=== PATIENT | female | born 1995 | race Caucasian/White ===

== ENCOUNTER 2016-07-18 19:55 | Emergency (ER) | payer SELFPAY ==
[2016-07-18] MEDS ORDERED: Ondansetron INJ* 2 MG/ML VIAL IV ONE (21:40)
[2016-07-18] MEDS ORDERED: NS 0.9% 1000 ML* 2,000 ML IV ONE (21:40)
[2016-07-18 22:13] LABS: Hematocrit 39 % (35-47); Mean Corpuscular HGB Conc 34 g/dl (31-36); Mean Corpuscular Hemoglobin 28 pg (27-31); Mean Corpuscular Volume 85 fL (80-97); Mean Platelet Volume 8 um3 (7.4-10.4); Red Cell Distribution Width 13 % (10.5-15); White Blood Count 13.4 10^3/ul (3.5-10.8)
[2016-07-18 22:23] LABS: Urine Bacteria 1+ (Absent); Urine Bilirubin Negative (Negative); Urine Glucose Negative (Negative); Urine Nitrite Negative (Negative)
[2016-07-18 22:31] LABS: Albumin 4.7 g/dL (3.2-5.2); BUN/Creatinine Ratio 7.8 (8-20); Calcium 9.8 mg/dL (8.6-10.3); EGFR African American 149.2 (>60); Globulin 3.3 g/dL (2-4); Potassium 3.4 mmol/L (3.5-5.0); Total Bilirubin 0.5 mg/dL (0.2-1.0)
[2016-07-19] MEDS ORDERED: Nitrofurantoin Macrocrystals* 50 MG CAP PO ONE (01:24)
--- NOTE | 2016-07-19 01:28 | ED ---
Melinda Thurston SooYoung, scribed for Everton Boston on 07/18/16 at 2142 . Influenza-Like Illness - HPI Summary HPI Summary: A 21 y/o F presents to ED with c/o n/v onset two days. Associated sx: abd pain, hot flashes. Denies diarrhea, vaginal bleeding. Pt is , believes it's been 8 weeks. She says she's been unable to eat anything, and has even thrown up water. Denies PSHx. - History of Current Complaint Chief Complaint: EDNauseaVomitDiarrh Time Seen by Provider: 07/18/16 21:32 Hx Obtained From: Patient Onset/Duration: Lasting Days, Still Present Severity: Moderate - Allergy/Home Medications Allergies/Adverse Reactions: Allergies Allergy/AdvReac Type Severity Reaction Status Date / Time No Known Allergies Allergy Verified 07/18/16 19:58 PMH/Surg Hx/FS Hx/Imm Hx Previously Healthy: Yes GI History: Denies: Other GI Disorders - DENIES History: Denies: Other Problems/Disorders - DENIES Infectious Disease History: No Infectious Disease History: Denies: Traveled Outside the [place] in Last 30 Days - Family History Known Family History: Positive: Hypertension, Diabetes - Social History Occupation: Employed Full-time Lives: With Family Alcohol Use: None Substance Use Type: Reports: None Smoking Status (MU): Never Smoked Tobacco Review of Systems Positive: Other - pos: hot flases Positive: Abdominal Pain, Vomiting, Nausea. Negative: Diarrhea Positive: other - neg: vaginal bleeding All Other Systems Reviewed And Are Negative: Yes Physical Exam Triage Information Reviewed: Yes Vital Signs On Initial Exam: Initial Vitals Temp Pulse Resp BP Pulse Ox 97.6 F 87 18 144/75 99 07/18/16 19:58 07/18/16 19:58 07/18/16 19:58 07/18/16 19:58 07/18/16 19:58 Vital Signs Reviewed: Yes Appearance: Positive: Well-Appearing, No Pain Distress Skin: Positive: Warm, Skin Color Reflects Adequate Perfusion, Dry Head/Face: Positive: Normal Head/Face Inspection Eyes: Positive: EOMI, FANTA ENT: Positive: Normal ENT inspection Neck: Positive: Supple, Nontender Respiratory/Lung Sounds: Positive: Clear to Auscultation, Breath Sounds Present Cardiovascular: Positive: RRR, Pulses are Symmetrical in both Upper and Lower Extremities Abdomen Description: Positive: Soft, Other: - POS: MILD TENDERNESS HYPOGASTRIC Bowel Sounds: Positive: Present Musculoskeletal: Positive: Normal, Strength/ROM Intact - 4XFROM Neurological: Positive: Normal, Sensory/Motor Intact, Alert, Oriented to Person Place, Time Diagnostics - Vital Signs Vital Signs Temp Pulse Resp BP Pulse Ox 07/18/16 19:58 97.6 F 87 18 144/75 99 - Laboratory Result Diagrams: 07/18/16 22:00 07/18/16 22:00 Lab Statement: Any lab studies that have been ordered have been reviewed, and results considered in the medical decision making process. - Ultrasound No standard instances Ultrasound Interpretation: Positive (See Comments) - TRANSVAG US, IMPRESSION: Live IUP with estimated age 7 weeks and 5 days with small proximal subchorionic bleed. ABD US, IMPRESSION: Nonvisualization of the appy, and therefory appendicitis cannot be excluded. Ultrasound Interpretation Completed By: Radiologist Flu Symptom Course/Dx - Course Course Of Treatment: MDM: A 7-week, 5-day 21 y/o F presents to ED with n/v for two days, has been unable to eat. Pt denies CP, SOB. Ordered UA, transvag and abd US. Zofran given. UA results showed Specific [place] of 1.009. Ketones 2+. Leukocytes, WBC and Bacteria 1+ each. US showed no appy. Will D/C pt with Zofran and Macrobid for UTI, to f/u with [facility] in three days. Pt voiced understanding. - Diagnoses Provider Diagnoses: UTI in , Hyperemesis gravidarum Discharge - Discharge Plan Condition: Stable Disposition: HOME Prescriptions: Nitrofurantoin Monohyd Macro [Macrobid] 100 mg PO BID #20 cap Ondansetron [Zofran Odt] 4 mg PO TID #30 tab Patient Education Materials: Ondansetron (By mouth), Nitrofurantoin Combination (By mouth), Hyperemesis Gravidarum (ED), Urinary Tract Infection in (ED) Referrals: No Primary Care Phys,NOPCP [Primary Care Provider] - Ophelia Joseph MD [Medical Doctor] - Additional Instructions: Follow up with Dr. Joseph, [facility]. U/S showed you are 7-weeks and 5-days . Please return to ED if your symptoms return or worsen. The documentation as recorded by the Melinda ruvalcaba SooYoung accurately reflects the service I personally performed and the decisions made by , Everton Boston.
[2016-07-19 01:52] VITALS: BP 128/72
--- NOTE | 2016-07-19 07:47 | RAD ---
HISTORY: , vomiting, age by dates of 7 weeks and 6 days COMPARISONS: None relevant TECHNIQUE: Multiple transverse and longitudinal ultrasound images were obtained of the pelvis using grayscale, color Doppler, spectral Doppler imaging and M-Mode Doppler imaging using the endovaginal transducer. FINDINGS: UTERUS: The uterus is normal in shape, size, contour, and echotexture. There is fluid within the endocervical canal with an avascular polypoid lesion measuring approximately 0.7 cm. The cervix measures 3.3 cm in length GESTATION: There is a single live intrauterine gestation. The crown-rump length measures 0.99 cm for a gestational age of 7 weeks and 1 day. The RADHA is March 05, 2017, based on the crown-rump length. This is concordant with age by dates. cardiac motion is detected at a rate of 140 beats per minute. Gross movement is identified. anatomy cannot be assessed secondary to early dates. The amniotic fluid is qualitatively normal. There is a small subchorionic hemorrhage measuring 0.8 x 0.6 x 1.7 cm CUL-DE-SAC: There is no free fluid within the cul-de-sac. RIGHT OVARY: The right ovary measures 5.2 x 3 x 2.4 cm. Normal arterial and venous waveforms are identifiable within the ovary on spectral Doppler imaging. There is a 2 x 1.7 x 1.8 cm simple cyst of the right ovary LEFT OVARY: The left ovary measures 2.9 x 2.2 x 1.6 cm. Normal arterial and venous waveforms are identifiable within the ovary on spectral Doppler imaging. BLADDER: The bladder is not well visualized. IMPRESSION: 1. SINGLE LIVE INTRAUTERINE GESTATION AT 7 WEEKS AND 1 DAY BY CROWN-RUMP LENGTH. 2. SMALL SUBCHORIONIC HEMORRHAGE. 3. SMALL AMOUNT OF FLUID WITHIN THE ENDOCERVICAL CANAL WITH AN AVASCULAR POLYPOID LESION. THIS MAY REPRESENT HEMORRHAGIC MATERIAL WITHIN THE ENDOCERVICAL CANAL. RECOMMEND ATTENTION ON FOLLOW-UP IMAGING.
--- NOTE | 2016-07-19 07:48 | RAD ---
HISTORY: Abdominal pain, vomiting COMPARISONS: None TECHNIQUE: Multiple transverse and longitudinal ultrasound images were obtained of the right lower quadrant using grayscale and color Doppler imaging. FINDINGS: The appendix is not visualized. There is no free or loculated fluid within the right lower quadrant. IMPRESSION: THE APPENDIX IS NOT VISUALIZED. THERE IS NO FREE OR LOCULATED FLUID WITHIN THE RIGHT LOWER QUADRANT.
== END 2016-07-19 01:51 | disposition home or self-care (01) ==
LOC: ED 19:55
DX: O23.41 Unspecified infection of urinary tract in pregnancy, first trimester (principal); O21.0 Mild hyperemesis gravidarum; Z3A.08 8 weeks gestation of pregnancy
CPT/HCPCS: 36415; 76705; 76817; 80053; 81003; 81015; 83690; 84702; 85025; 86850; 86900; 86901; 87086; 96360; 96374; 99282; A9270-GY; J2405

== ENCOUNTER 2016-07-25 10:29 | Emergency (ER) | payer MEDICAID ==
[2016-07-25 11:47] VITALS: BP 112/67
--- NOTE | 2016-07-25 12:08 | UC ---
Throat Pain/Nasal Bebeto HPI - HPI Summary HPI Summary: complaint of cough and nasal congestion that started 2 days ago feels fatigued sore throat from coughing , mild ear pain coughed so hard this morning she vomited 1x denies fever and chills denies diarrhea taking zofran for nausea- able to drink fluids seen in ED 1 week ago- UTI tx and rehydration 8 weeks - History of Current Complaint Chief Complaint: UCRespiratory Stated Complaint: URI Time Seen by Provider: 07/25/16 11:58 Hx Obtained From: Patient Hx Last Menstrual Period: end may - Allergies/Home Medications Allergies/Adverse Reactions: Allergies Allergy/AdvReac Type Severity Reaction Status Date / Time No Known Allergies Allergy Verified 07/25/16 11:47 PMH/Surg Hx/FS Hx/Imm Hx Previously Healthy: No - 8 weeks , UTI - Surgical History Surgical History: None - Family History Known Family History: Positive: Hypertension, Diabetes Negative: Cardiac Disease - Social History Occupation: Employed Full-time Alcohol Use: None Substance Use Type: None Smoking Status (MU): Never Smoked Tobacco Household Exposure Type: Cigarettes Review of Systems Constitutional: Negative Skin: Negative Eyes: Negative ENT: Sore Throat, Ear Ache, Nasal Discharge Respiratory: Cough Cardiovascular: Negative Gastrointestinal: Negative Genitourinary: Negative Motor: Negative Neurovascular: Negative Musculoskeletal: Negative Neurological: Negative Psychological: Negative All Other Systems Reviewed And Are Negative: Yes Physical Exam Triage Information Reviewed: Yes Appearance: No Pain Distress, Well-Nourished Vital Signs: Initial Vital Signs Temp 97.8 F 07/25/16 11:42 Pulse 97 07/25/16 11:42 Resp 20 07/25/16 11:42 BP 112/67 07/25/16 11:42 Pulse Ox 98 07/25/16 11:42 Vital Signs Reviewed: Yes Eyes: Positive: Conjunctiva Clear ENT: Positive: Pharyngeal erythema, Nasal congestion, TMs normal. Negative: Tonsillar swelling, Tonsillar exudate Neck: Positive: No Lymphadenopathy Respiratory: Positive: Lungs clear, Normal breath sounds, No respiratory distress Cardiovascular: Positive: RRR, No Murmur, Pulses Normal Abdomen Description: Positive: Nontender, Soft Bowel Sounds: Positive: Present Musculoskeletal: Positive: No Edema Neurological: Positive: Alert Psychological Exam: Normal Skin Exam: Normal Throat Pain/Nasal Course/Dx - Course Course Of Treatment: exam completed. still being treated for uti,nausea. no indication for antibiotic. will rx for albuterol for bronchospasm. followup with [facility] next week - Differential Dx/Diagnosis Differential Diagnosis/HQI/PQRI: Otitis Media, Pharyngitis, URI Provider Diagnoses: URI Discharge - Discharge Plan Condition: Stable Disposition: HOME Prescriptions: Albuterol HFA INHALER* [Ventolin HFA Inhaler*] 2 puff INH Q4H PRN #1 mdi PRN Reason: Cough Spacer/Aerosol-Holding Chamber [Aerochamber Mv] 1 mis XX Q4HR #1 mis Patient Education Materials: Upper Respiratory Infection (ED) Forms: *Work Release Referrals: No Primary Care Phys,NOPCP [Primary Care Provider] - Additional Instructions: Use your albuterol inhaler every 4-6 hours when needed for wheezing, shortness of breath or uncontrolled coughing. Increase fluids and rest Take acetaminophen for fever or pain Please review your discharge instructions. If your symptoms do not improve please call your primary care provider or return to urgent care.
[2016-07-25] MEDS ORDERED: PPD test dose* 5 TU/0.1 ML TEST (*USE PPD ORDER SET*) ONE (14:22)
== END 2016-07-25 12:48 | disposition home or self-care (01) ==
LOC: UCEAST 10:29
DX: O26.891 Other specified pregnancy related conditions, first trimester (principal); Z3A.08 8 weeks gestation of pregnancy; J06.9 Acute upper respiratory infection, unspecified; Z87.440 Personal history of urinary (tract) infections; Z77.22 Contact with and (suspected) exposure to environmental tobacco smoke (acute) (chronic)
CPT/HCPCS: 99212; G0463

== ENCOUNTER 2017-03-11 08:08 | Inpatient (IN) | payer OTHER ==
[2017-03-11] MEDS ORDERED: Dinoprostone* 10 MG VAG.SUPP VAGINAL ONE ×2 (08:51→21:18)
[2017-03-11] MEDS ORDERED: Nalbuphine* 20 MG/ML 1 ML VIAL IV ONE (21:58)
[2017-03-11] MEDS ORDERED: Promethazine INJ(RESTRICTED)* 25 MG/ML 1 ML VIAL IM ONE (21:59)
[2017-03-12] MEDS ORDERED: Oxytocin in LR* 20 UNITS/1,000 ML BAG IVPB SCH (11:00)
[2017-03-12 11:27] LABS: Hematocrit 36 % (35-47); Mean Corpuscular HGB Conc 33 g/dl (31-36); Mean Corpuscular Hemoglobin 28 pg (27-31); Mean Corpuscular Volume 85 fL (80-97); Mean Platelet Volume 8 um3 (7.4-10.4); Red Blood Count 4.27 10^6/ul (4.0-5.4); Red Cell Distribution Width 15 % (10.5-15); White Blood Count 13.7 10^3/ul (3.5-10.8)
[2017-03-12] MEDS ORDERED: Promethazine INJ(RESTRICTED)* 25 MG/ML 1 ML VIAL IV ONE (20:59)
[2017-03-12] MEDS ORDERED: Nalbuphine* 20 MG/ML 1 ML VIAL IV ONE (21:01)
[2017-03-13] MEDS ORDERED: OBEPIDURAL* 0 ML ONE (00:47)
[2017-03-13] MEDS ORDERED: fentaNYL* 50 MCG/ML 2 ML VIAL (100 MCG VIAL) ONE (03:12)
[2017-03-13] MEDS ORDERED: Phenylephrine IV* 40 MCG/ML 10 ML SYRINGE IV PUSH PRN ×2 (03:58)
[2017-03-13] MEDS ORDERED: Famotidine TAB* 20 MG PO PRN (03:58)
[2017-03-13] MEDS ORDERED: fentaNYL* 50 MCG/ML 2 ML VIAL (100 MCG VIAL) IV SLOW PU ONE ×2 (04:00→08:16)
[2017-03-13] MEDS ORDERED: Glycerin ADULT SUPP PR PRN (08:44)
[2017-03-13] MEDS ORDERED: Acetaminophen TAB* 325 MG PO PRN (08:44)
[2017-03-13] MEDS ORDERED: oxyCODONE/Acetamin 5/325 MG* TAB PO PRN (08:44)
[2017-03-13] MEDS ORDERED: Oxytocin in LR* 20 UNITS/1,000 ML BAG IVPB SCH (09:00)
[2017-03-13] MEDS: Ibuprofen TAB* 600 MG PO PRN ×3 (10:12→22:06)
[2017-03-13] MEDS: Witch Hazel PAD* JAR TOPICAL PRN (10:13)
[2017-03-13] MEDS: Dibucaine 1% 28.35 GM TUBE PR PRN (10:13)
[2017-03-13] MEDS: Docusate CAP* 100 MG PO SCH ×3 (11:12→20:07)
[2017-03-13] MEDS ORDERED: Simethicone TAB* 80 MG TAB.CHEW PO SCH (12:30)
[2017-03-14] MEDS: Ibuprofen TAB* 600 MG PO PRN ×3 (04:56→20:21)
[2017-03-14 08:17] LABS: Hematocrit 28 % (35-47); Hemoglobin 9.5 g/dl (12.0-16.0); Mean Corpuscular HGB Conc 34 g/dl (31-36); Mean Corpuscular Hemoglobin 29 pg (27-31); Mean Corpuscular Volume 85 fL (80-97); Mean Platelet Volume 8 um3 (7.4-10.4); Red Blood Count 3.29 10^6/ul (4.0-5.4); Red Cell Distribution Width 15 % (10.5-15); White Blood Count 15.9 10^3/ul (3.5-10.8)
[2017-03-14] MEDS: Ferrous Gluconate TAB* 324 MG TAB PO SCH ×2 (08:58→20:21)
[2017-03-14] MEDS: Docusate CAP* 100 MG PO SCH ×3 (08:58→20:21)
[2017-03-14] MEDS: Dibucaine 1% 28.35 GM TUBE PR PRN (20:21)
[2017-03-14] MEDS: Witch Hazel PAD* JAR TOPICAL PRN (20:21)
[2017-03-15] MEDS: Ibuprofen TAB* 600 MG PO PRN ×3 (05:05→17:06)
[2017-03-15] MEDS: Docusate CAP* 100 MG PO SCH ×2 (07:35→13:48)
[2017-03-15] MEDS: Ferrous Gluconate TAB* 324 MG TAB PO SCH (07:35)
[2017-03-15 07:36] VITALS: BP 144/70
== END 2017-03-15 17:00 | disposition home or self-care (01) | DRG 560 ==
LOC: MCHOBOUT 08:08 → MCHOB 08:54
PROVIDERS: ADMIT Midwife; ATTEND Midwife
PROC: 3E0P7GC Introduction of Other Therapeutic Substance into Female Reproductive, Via Natural or Artificial Opening (ICD-10-PCS; principal; 2017-03-13)
PROC: 10E0XZZ Delivery of Products of Conception, External Approach (ICD-10-PCS; 2017-03-13)
PROC: 4A1HXCZ Monitoring of Products of Conception, Cardiac Rate, External Approach (ICD-10-PCS; 2017-03-13)
PROC: 0KQM0ZZ Repair Perineum Muscle, Open Approach (ICD-10-PCS; 2017-03-13)
DX: O48.0 Post-term pregnancy (principal); E66.9 Obesity, unspecified; O87.2 Hemorrhoids in the puerperium; Z3A.41 41 weeks gestation of pregnancy; Z37.0 Single live birth; O69.81X0 Labor and delivery complicated by cord around neck, without compression, not applicable or unspecified; O90.81 Anemia of the puerperium; O70.1 Second degree perineal laceration during delivery; O77.0 Labor and delivery complicated by meconium in amniotic fluid; O99.214 Obesity complicating childbirth; Z68.33 Body mass index [BMI] 33.0-33.9, adult
CPT/HCPCS: 36415; 59200; 85025; 86850; 86900; 86901; A9270-GY; J2300; J2550; J3010

== ENCOUNTER 2017-08-22 12:47 | Emergency (ER) | payer OTHER ==
[2017-08-22 12:58] VITALS: BP 133/82
[2017-08-22] MEDS ORDERED: Ibuprofen TAB* 600 MG PO ONE (13:29)
--- NOTE | 2017-08-22 13:29 | UC ---
Respiratory Complaint HPI - HPI Summary HPI Summary: 22 year old female with no significant pmhx here with sore throat since yesterday. Reports chills but no fever. Also bilateral earache with no discharge. Dry cough. No odynophagia or dysphagia. - History of Current Complaint Chief Complaint: UCRespiratory Stated Complaint: SORE THROAT Time Seen by Provider: 08/22/17 13:05 Hx Last Menstrual Period: 08/14/17 Onset/Duration: Gradual Onset Timing: Constant Severity Initially: Mild Severity Currently: Mild Pain Intensity: 3 Character: Cough: Nonproductive Associated Signs And Symptoms: Positive: Chills. Negative: Dyspnea, Fever, Pleuritic Chest Pain, Wheezing, Hemoptysis, Dizziness, Calf Pain, Calf Swelling , Edema, Nasal Congestion, Hoarseness, Sinus Discomfort - Allergies/Home Medications Allergies/Adverse Reactions: Allergies Allergy/AdvReac Type Severity Reaction Status Date / Time No Known Allergies Allergy Verified 08/22/17 12:58 PMH/Surg Hx/FS Hx/Imm Hx Previously Healthy: Yes - Surgical History Surgical History: None - Family History Known Family History: Positive: Hypertension, Diabetes Negative: Cardiac Disease - Social History Alcohol Use: None Substance Use Type: None Smoking Status (MU): Never Smoked Tobacco Household Exposure Type: Cigarettes - Immunization History Most Recent Influenza Vaccination: Unknown Most Recent Pneumonia Vaccination: Unknown Review of Systems Constitutional: Negative Skin: Negative Eyes: Negative ENT: Negative, Sore Throat, Ear Ache Respiratory: Cough Cardiovascular: Negative Gastrointestinal: Negative Genitourinary: Negative Motor: Negative Neurovascular: Negative Musculoskeletal: Negative Neurological: Negative Psychological: Negative All Other Systems Reviewed And Are Negative: Yes Physical Exam Triage Information Reviewed: Yes Appearance: Well-Appearing, No Pain Distress Vital Signs: Initial Vital Signs Temp 36.5 C 08/22/17 12:54 Pulse 90 08/22/17 12:54 Resp 16 08/22/17 12:54 BP 133/82 08/22/17 12:54 Pulse Ox 98 08/22/17 12:54 Vital Signs Reviewed: Yes Eye Exam: Normal ENT: Positive: Pharyngeal erythema, TMs normal, Tonsillar exudate, Uvula midline. Negative: Tonsillar swelling, Trismus, Muffled voice, Hoarse voice, Dental tenderness, Sinus tenderness Neck exam: Normal Respiratory Exam: Normal Cardiovascular Exam: Normal Abdominal Exam: Normal Musculoskeletal Exam: Normal Skin Exam: Normal UC Diagnostic Evaluation - Laboratory O2 Sat by Pulse Oximetry: 98 Respiratory Course/Dx - Differential Dx/Diagnosis Differential Diagnosis/HQI/PQRI: Bronchitis, Lower Resp Infection, Sinusitis Provider Diagnoses: pharyngitis. rapid strep negative. Will instruct patient to take NSAIDs and magic mouth wash Discharge - Discharge Plan Condition: Good Disposition: HOME Prescriptions: Ibuprofen TAB* [Motrin TAB* 600 MG] 600 mg PO Q8H PRN #30 tab PRN Reason: Pain Magic Mouth Was-TOMAS/MAAL/LIDO* 5 ml SWISH SWAL QID PRN #1 bottle PRN Reason: Pain Penicillin VK 500 MG TAB(NF) [Penicillin VK 500 mg Tab] 500 mg PO QID #10 tab Patient Education Materials: Pharyngitis (ED), Strep Throat (ED) Forms: *Work Release Referrals: No Primary Care Phys,NOPCP [Primary Care Provider] -
== END 2017-08-22 14:15 | disposition home or self-care (01) ==
LOC: UCEAST 12:47
DX: J02.9 Acute pharyngitis, unspecified (principal); R68.83 Chills (without fever); H92.03 Otalgia, bilateral; R05 Cough
CPT/HCPCS: 87651; 99212; A9270-GY; G0463

== ENCOUNTER 2017-09-29 10:38 | Emergency (ER) | payer OTHER ==
[2017-09-29 10:57] VITALS: BP 110/66
--- NOTE | 2017-09-29 12:10 | UC ---
Respiratory Complaint HPI - HPI Summary HPI Summary: Patient has had increased cough, sinus pressure, and sob on exertion denies fever - History of Current Complaint Chief Complaint: UCRespiratory Stated Complaint: URI Time Seen by Provider: 09/29/17 10:54 Hx Obtained From: Patient Hx Last Menstrual Period: 09/21/17 ?: No Onset/Duration: Sudden Onset, Lasting Days Severity Initially: Moderate Severity Currently: Moderate Pain Intensity: 7 Character: Cough: Nonproductive Aggravating Factors: Deep Breaths, Recumbent Position Alleviating Factors: Nothing Associated Signs And Symptoms: Positive: Wheezing, URI, Nasal Congestion, Sinus Discomfort - Allergies/Home Medications Allergies/Adverse Reactions: Allergies Allergy/AdvReac Type Severity Reaction Status Date / Time No Known Allergies Allergy Verified 09/29/17 10:57 PMH/Surg Hx/FS Hx/Imm Hx Previously Healthy: Yes - Surgical History Surgical History: None - Family History Known Family History: Positive: Hypertension, Diabetes Negative: Cardiac Disease - Social History Alcohol Use: None Substance Use Type: None Smoking Status (MU): Never Smoked Tobacco Household Exposure Type: Cigarettes - Immunization History Most Recent Influenza Vaccination: Unknown Most Recent Pneumonia Vaccination: Unknown Review of Systems Constitutional: Chills, Fatigue Skin: Negative Eyes: Negative ENT: Sore Throat, Ear Ache, Nasal Discharge, Sinus Congestion, Sinus Pain/ Tenderness Respiratory: Shortness Of Breath, Cough Cardiovascular: Negative Gastrointestinal: Negative Genitourinary: Negative Motor: Negative Neurovascular: Negative Musculoskeletal: Negative Neurological: Headache Psychological: Negative Is Patient Immunocompromised?: No All Other Systems Reviewed And Are Negative: Yes Physical Exam Triage Information Reviewed: Yes Appearance: Well-Nourished, Ill-Appearing, Pain Distress Vital Signs: Initial Vital Signs Temp 97.5 F 09/29/17 10:53 Pulse 72 09/29/17 10:53 Resp 18 09/29/17 10:53 BP 110/66 09/29/17 10:53 Pulse Ox 98 09/29/17 10:53 Vital Signs Reviewed: Yes Eye Exam: Normal ENT: Positive: Nasal congestion, Nasal drainage, TM bulging, Sinus tenderness Dental Exam: Normal Neck exam: Normal Neck: Positive: Supple, Nontender, No Lymphadenopathy Respiratory Exam: Normal Respiratory: Positive: Chest non-tender, Lungs clear, Normal breath sounds Cardiovascular Exam: Normal Cardiovascular: Positive: RRR, No Murmur, Pulses Normal Abdominal Exam: Normal Abdomen Description: Positive: Nontender, No Organomegaly, Soft Bowel Sounds: Positive: Present Musculoskeletal Exam: Normal Musculoskeletal: Positive: Strength Intact, ROM Intact, No Edema Neurological Exam: Normal Neurological: Positive: Alert, Muscle Tone Normal Psychological Exam: Normal Skin Exam: Normal UC Diagnostic Evaluation - Laboratory O2 Sat by Pulse Oximetry: 98 Respiratory Course/Dx - Course Course Of Treatment: hx obtained, exam performed ,meds reviewed, treated for bronchitis and sinusitis - Differential Dx/Diagnosis Differential Diagnosis/HQI/PQRI: Asthma, Bronchitis, Sinusitis Provider Diagnoses: sinusitis. bronchitis Discharge - Sign-Out/Discharge Documenting (check all that apply): Discharge - Discharge Plan Condition: Stable Disposition: HOME Prescriptions: Azithromyxin ABDIRAHMAN (NF) [Z-Abdirahman (Zithromax) 250 mg tabs #6] 2 tab PO .TODAY, THEN 1 DAILY #6 tab predniSONE TAB* [Deltasone TAB*] 40 mg PO DAILY #14 tab Patient Education Materials: Sinusitis (ED) Referrals: No Primary Care Phys,NOPCP [Primary Care Provider] - Additional Instructions: 1. take the medication as prescribed. 2. Get plenty of rest, increase fluid intake 3. Follow up as needed. - Billing Disposition and Condition Condition: STABLE Disposition: HOME
== END 2017-09-29 12:18 | disposition home or self-care (01) ==
LOC: UCEAST 10:38
DX: J32.9 Chronic sinusitis, unspecified (principal); J40 Bronchitis, not specified as acute or chronic
CPT/HCPCS: 99212; G0463

== ENCOUNTER 2017-12-20 12:51 | Emergency (ER) | payer SELFPAY ==
[2017-12-20 13:16] VITALS: BP 116/70
--- NOTE | 2017-12-20 14:02 | UC ---
Arin Thurston Gabriel, scribed for Tariq Lambert MD on 12/20/17 at 1332 . Throat Pain/Nasal Bebeto HPI - HPI Summary HPI Summary: This patient is a 22 year old F presenting to [facility] c/o sore throat and right ear pain that began last night. The patient rates the pain 8/10 in severity. Patient reports myalgia, rhinorrhea, cough, and sneezing. - History of Current Complaint Chief Complaint: UCGeneralIllness Stated Complaint: SORE THROAT EAR PAIN RESP ISSUE Time Seen by Provider: 12/20/17 13:24 Hx Obtained From: Patient Hx Last Menstrual Period: 12/06/17 Onset/Duration: Still Present Severity: Severe Pain Intensity: 8 Pain Scale Used: 0-10 Numeric Associated Signs & Symptoms: Positive: Fever, Other - ear pain - Allergies/Home Medications Allergies/Adverse Reactions: Allergies Allergy/AdvReac Type Severity Reaction Status Date / Time No Known Allergies Allergy Verified 12/20/17 13:16 PMH/Surg Hx/FS Hx/Imm Hx Previously Healthy: Yes Other History Of: Negative For: Hepatitis C - Surgical History Surgical History: None - Family History Known Family History: Positive: Hypertension, Diabetes Negative: Cardiac Disease - Social History Alcohol Use: Rare Substance Use Type: None Smoking Status (MU): Never Smoked Tobacco Household Exposure Type: Cigarettes - Immunization History Most Recent Influenza Vaccination: Unknown Most Recent Pneumonia Vaccination: Unknown Review of Systems Constitutional: Fever ENT: Sore Throat, Ear Ache, Nasal Discharge, Other - sneezing Respiratory: Cough Musculoskeletal: Myalgia All Other Systems Reviewed And Are Negative: Yes Physical Exam - Summary Physical Exam Summary: General: mildly ill-appearing, no pain distress Skin: warm, color reflects adequate perfusion, dry Head: normal Eyes: EOMI, FANTA ENT: posterior pharynx is erythematous with exudates, tonsils two plus Neck: supple, nontender Respiratory: CTA, breath sounds present Cardiovascular: RRR Abdomen: soft, nontender Bowel: present Musculoskeletal: normal, strength/ROM intact Neurological: sensory/motor intact, A&O x3 Psychological: affect/mood appropriate Triage Information Reviewed: Yes Vital Signs: Initial Vital Signs Temp 100.6 F 12/20/17 13:13 Pulse 88 12/20/17 13:13 Resp 20 12/20/17 13:13 BP 116/70 12/20/17 13:13 Pulse Ox 100 12/20/17 13:13 Vital Signs Reviewed: Yes Throat Pain/Nasal Course/Dx - Differential Dx/Diagnosis Provider Diagnoses: STREP THROAT Discharge - Sign-Out/Discharge Documenting (check all that apply): Discharge/Admit/Transfer - Discharge Plan Condition: Stable Disposition: HOME Prescriptions: Penicillin VK 500 MG TAB(NF) [Penicillin VK 500 mg Tab] 500 mg PO TID #30 tab Patient Education Materials: Strep Throat (ED) Forms: *Work Release Referrals: [facility] [Outside] Additional Instructions: FOLLOW UP WITH YOUR DOCTOR. GET RECHECKED FOR ANY WORSENING OF YOUR CONDITION OR QUESTIONS OR CONCERNS. - Billing Disposition and Condition Condition: STABLE Disposition: Home The documentation as recorded by the Arin ruvalcaba Gabriel accurately reflects the service I personally performed and the decisions made by me, Tariq Lambert MD.
== END 2017-12-20 13:50 | disposition home or self-care (01) ==
LOC: UCEAST 12:51
DX: J02.0 Streptococcal pharyngitis (principal)
CPT/HCPCS: 87651; 99212; G0463

== ENCOUNTER 2018-02-07 21:23 | Emergency (ER) | payer SELFPAY ==
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
[2018-02-08 01:28] VITALS: BP 136/66
== END 2018-02-08 01:26 | disposition home or self-care (01) ==
LOC: ED 21:23
DX: S09.90XA Unspecified injury of head, initial encounter (principal); V48.1XXA Car passenger injured in noncollision transport accident in nontraffic accident, initial encounter; Y93.9 Activity, unspecified; Y92.9 Unspecified place or not applicable; M54.9 Dorsalgia, unspecified; M54.2 Cervicalgia; R11.0 Nausea
CPT/HCPCS: 72125; 72128; 72131; 99282

== ENCOUNTER 2019-02-23 19:40 | Emergency (ER) | payer BC ==
[2019-02-23 19:54] VITALS: BP 147/74
[2019-02-23] MEDS ORDERED: Ketorolac *IM* INJ* 60 MG/2 ML VIAL IM ONE (20:04)
--- NOTE | 2019-02-23 20:04 | UC ---
Back Pain HPI - HPI Summary HPI Summary: 23 yo woman with history of intermittent back pain since an epidural 2 years ago , who had acute onset of pain when she turned to flush the toilet today and sneezed at the same time. Acute onset of pain and worsening spasm as the day has progressed. Her last dose of ibuprofen was this morning, and she as rested all day, as well as applying ice to the area without relief. No urinary or fecal incontinence. Some radiation of pain to the right anterolateral thigh, no leg weakness. - History of Current Complaint Chief Complaint: UCBackPain Stated Complaint: BACK PAIN Time Seen by Provider: 02/23/19 19:47 Hx Obtained From: Patient Hx Last Menstrual Period: 02/02/2019 Onset/Duration: Sudden Onset, Lasting Hours Timing: Constant Severity Initially: Severe Severity Currently: Severe Pain Intensity: 10 Back Pain: Is Diffuse - lumbar spine. Character: Throbbing, Spasmodic Aggravating Factor(s): Movement, Lifting, Bending, Walking, Cough Alleviating Factor(s): Rest, Position - best with lying, fair with standing. Associated Signs And Symptoms: Negative: Weakness, Numbness, Bladder Incontinence, Bowel Incontinence - Risk Factors AAA Risk Factors: Negative TAD Risk Factors: Negative Cauda Equina Risk Factors: Negative - Allergies/Home Medications Allergies/Adverse Reactions: Allergies Allergy/AdvReac Type Severity Reaction Status Date / Time No Known Allergies Allergy Verified 02/07/18 21:56 Home Medications: Home Medications Ibuprofen TAB* [Motrin TAB* 800 MG] 02/23/19 [History] PMH/Surg Hx/FS Hx/Imm Hx Previously Healthy: Yes Other History Of: Negative For: Hepatitis C - Surgical History Surgical History: None - Family History Known Family History: Positive: Hypertension, Diabetes Negative: Cardiac Disease - Social History 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: Employed 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-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 [employer] Alcohol Use: None Substance Use Type: None Smoking Status (MU): Never Smoked Tobacco Household Exposure Type: Cigarettes - Immunization History Most Recent Influenza Vaccination: Unknown Most Recent Pneumonia Vaccination: Unknown Review of Systems All Other Systems Reviewed And Are Negative: Yes Constitutional: Positive: Fatigue Motor: Positive: Decreased ROM Is Patient Immunocompromised?: No Physical Exam Triage Information Reviewed: Yes Appearance: Well-Appearing, Pain Distress - moderate to severe Vital Signs: Initial Vital Signs Temp 99.2 F 02/23/19 19:47 Pulse 79 09/02/19 19:47 Resp 16 02/23/19 19:47 BP 147/74 02/23/19 19:47 Pulse Ox 99 02/23/19 19:47 ENT: Positive: Normal ENT inspection Respiratory: Positive: Lungs clear, Normal breath sounds, No respiratory distress Cardiovascular: Positive: RRR, No Murmur Musculoskeletal Exam: Other - standing forward flexed at the lumbar spine and reports too much pain to extend to neutral. She is unable to step up to the exam table. Musculoskeletal: Positive: Strength Intact, ROM Limited @ - lumbar spine Re-Evaluation - Re-Evaluation First Eval Change: Improved - pain decreased to 6/10, decreased spasm in paraspinal muscles , improved movement Back Pain Course/Dx - Course Course Of Treatment: We reviewed acute back spasm. Suggested PT, off work x 2 days, use of heat, brief use of lorazepam as a muscle relaxant with continued use of libuprofen as needed for pain. I-stop reviewed--had alprazolam given for dental procedure this past month. - Differential Dx/Diagnosis Differential Diagnosis/HQI/PQRI: Herniated Disc, Strain, Sprain Provider Diagnosis: Low back pain Discharge ED - Sign-Out/Discharge Documenting (check all that apply): Patient Departure All imaging exams completed and their final reports reviewed: No Studies - Discharge Plan Condition: Stable Disposition: HOME Prescriptions: LORazepam [Ativan 1 MG TAB] 1 mg PO TID PRN #10 tablet MDD 3 PRN Reason: Spasms - Back Naproxen [Naproxen 500 mg tab] 500 mg PO BID PRN #30 tablet PRN Reason: Pain - Moderate Patient Education Materials: Acute Low Back Pain (ED) Referrals: No Primary Care Phys,NOPCP [Primary Care Provider] - Laurel Johnson MD [Medical Doctor] - Additional Instructions: Use naproxen rather than ibuprofen for relief of pain, taking one tablet twice daily with food. Stop if it causes stomach upset or pain. You have a referral for physical therapy; please follow up with Dr Johnson if you are having persistent pain not relieved by the medicatins given. Use lorazepam with caution for relief of spasm - Billing Disposition and Condition Condition: STABLE Disposition: Home
[2019-02-23] MEDS ORDERED: LORazepam TAB(*) 1 MG PO ONE ×2 (20:05→21:02)
== END 2019-02-23 21:15 | disposition home or self-care (01) ==
LOC: UCEAST 19:40
DX: M54.9 Dorsalgia, unspecified (principal)
CPT/HCPCS: 96372; 99212; A9270-GY; G0463; J1885

== ENCOUNTER 2019-06-24 12:10 | Emergency (ER) | payer BC ==
[2019-06-24 13:09] VITALS: BP 119/71
--- NOTE | 2019-06-24 13:11 | UC ---
Throat Pain/Nasal Bebeto HPI - HPI Summary HPI Summary: 24 yo with 3 day history of sore throat and cough, decreased appetite. No nausea or vomiting, no fever. - History of Current Complaint Chief Complaint: UCGeneralIllness Stated Complaint: SORE THROAT HEAD CONGESTION Time Seen by Provider: 06/24/19 13:04 Hx Obtained From: Patient Hx Last Menstrual Period: 06/05/19 Onset/Duration: Gradual Onset, Lasting Days - 3 Severity: Mild Pain Intensity: 7 Cough: Nonproductive Associated Signs & Symptoms: Positive: Dysphagia, Sinus Discomfort. Negative: Wheezing, Fever, Vomiting, Rash - Epiglottits Risk Factors Epiglottis Risk Factors: Negative - Allergies/Home Medications Allergies/Adverse Reactions: Allergies Allergy/AdvReac Type Severity Reaction Status Date / Time No Known Allergies Allergy Verified 02/07/18 21:56 PMH/Surg Hx/FS Hx/Imm Hx Previously Healthy: Yes Other History Of: Negative For: Hepatitis C - Surgical History Surgical History: None - Family History Known Family History: Positive: Hypertension, Diabetes Negative: Cardiac Disease - Social History Occupation: Employed Full-time Lives: With Family Alcohol Use: None Substance Use Type: None Smoking Status (MU): Never Smoked Tobacco Household Exposure Type: Cigarettes - Immunization History Most Recent Influenza Vaccination: Unknown Most Recent Pneumonia Vaccination: Unknown Review of Systems All Other Systems Reviewed And Are Negative: Yes Constitutional: Positive: Fatigue Skin: Positive: Negative Eyes: Positive: Negative ENT: Positive: Sore Throat, Sinus Congestion Respiratory: Positive: Cough Cardiovascular: Positive: Negative Gastrointestinal: Positive: Negative Genitourinary: Positive: Negative Motor: Positive: Negative Neurovascular: Positive: Negative Musculoskeletal: Positive: Negative Neurological: Positive: Negative Psychological: Positive: Negative Is Patient Immunocompromised?: No Physical Exam Triage Information Reviewed: Yes Appearance: No Pain Distress, Ill-Appearing Vital Signs: Initial Vital Signs Temp 97.7 F 06/24/19 13:06 Pulse 85 06/24/19 13:06 Resp 17 06/24/19 13:06 BP 119/71 06/24/19 13:06 Pulse Ox 100 06/24/19 13:06 Eyes: Positive: Conjunctiva Clear, Conjunctiva Inflamed ENT: Positive: Pharyngeal erythema, TMs normal Neck: Positive: Supple, Nontender, No Lymphadenopathy Respiratory: Positive: Lungs clear, Normal breath sounds Cardiovascular: Positive: RRR, No Murmur Musculoskeletal Exam: Normal Neurological Exam: Normal Psychological Exam: Normal Skin Exam: Normal Diagnostics - Laboratory Lab Results: rapid strep negative Throat Pain/Nasal Course/Dx - Course Course Of Treatment: Symptomatic treatment of viral pharyngitis. - Differential Dx/Diagnosis Differential Diagnosis/HQI/PQRI: Laryngitis, Pharyngitis, URI Provider Diagnosis: Pharyngitis Discharge ED - Sign-Out/Discharge Documenting (check all that apply): Patient Departure All imaging exams completed and their final reports reviewed: No Studies - Discharge Plan Condition: Stable Disposition: HOME Patient Education Materials: Pharyngitis (ED) Referrals: No Primary Care Phys,NOPCP [Primary Care Provider] - Additional Instructions: Continue symptomatic treatment. Use ibuprofen and/or acetaminophen for discomfort of sore throat. Follow up if you you develop fever or worsening shortness of breath. - Billing Disposition and Condition Condition: STABLE Disposition: Home
== END 2019-06-24 13:40 | disposition home or self-care (01) ==
LOC: UCEAST 12:10
DX: J02.9 Acute pharyngitis, unspecified (principal); R53.83 Other fatigue
CPT/HCPCS: 87651; 99211; G0463

== ENCOUNTER 2019-09-04 08:22 | Emergency (ER) | payer BC ==
[2019-09-04 09:36] LABS: Influenza A Molecular Negative (Negative); Influenza B Molecular Negative (Negative)
[2019-09-04 11:30] VITALS: BP 116/80
--- NOTE | 2019-09-04 12:55 | UC ---
FLU HPI - HPI Summary HPI Summary: 2 DAYS OF COUGH, SORE THROAT, FEVER AROUND 101 AND FATIGUE. ALSO COMPLAINING OF HEADACHE AND BODY ACHES. STATES HER SISTER TESTED POSITIVE FOR THE FLU LAST WEEK AND IS REQUESTING FLU AND STREP TESTING TODAY. ALSO COMPLAINING OF ONE WEEK OF DYSURIA AND DARK URINE. - History of Current Complaint Chief Complaint: UCGeneralIllness Stated Complaint: SORE THROAT, CHEST PRESSURE, FEVER Time Seen by Provider: 09/04/19 08:50 Hx Obtained From: Patient Hx Last Menstrual Period: nuva ring Onset/Duration: Gradual Onset, Lasting Days, Still Present Severity Currently: Moderate Severity Initially: Moderate Pain Intensity: 0 Pain Scale Used: 0-10 Numeric Associated Signs & Symptoms: Positive: Fever, Myalgia, Cough, Sore Throat, Nasal Congestion, Headache - Allergy/Home Medications Allergies/Adverse Reactions: Allergies Allergy/AdvReac Type Severity Reaction Status Date / Time No Known Allergies Allergy Verified 09/04/19 08:46 Home Medications: Home Medications NK [No Home Medications Reported] 09/04/19 [History Confirmed 09/04/19] PMH/Surg Hx/FS Hx/Imm Hx Previously Healthy: Yes Other History Of: Negative For: Hepatitis C - Surgical History Surgical History: None - Family History Known Family History: Positive: Hypertension, Diabetes Negative: Cardiac Disease - Social History Alcohol Use: Occasionally Substance Use Type: Marijuana Smoking Status (MU): Never Smoked Tobacco Household Exposure Type: Cigarettes - Immunization History Most Recent Influenza Vaccination: Unknown Most Recent Pneumonia Vaccination: Unknown Review of Systems All Other Systems Reviewed And Are Negative: Yes Constitutional: Positive: Fever, Chills, Fatigue ENT: Positive: Sore Throat, Nasal Discharge Respiratory: Positive: Cough Cardiovascular: Positive: Negative Gastrointestinal: Positive: Negative Musculoskeletal: Positive: Myalgia Neurological/Mental Status: Positive: Headache Physical Exam Triage Information Reviewed: Yes Appearance: No Pain Distress, Well-Nourished, Ill-Appearing - FATIGUED Vital Signs: Initial Vital Signs Temp 98.7 F 09/04/19 08:47 Pulse 94 09/04/19 08:47 Resp 18 09/04/19 08:47 BP 132/90 09/04/19 08:47 Pulse Ox 98 09/04/19 08:47 Laboratory Tests 09/04/19 09/04/19 09/04/19 09:22 09:24 10:11 POC Urine Color Yellow POC Urine Clarity Clear POC Urine pH 5.5 POC Ur Specif [place] >= 1.030 POC Urine Protein Negative POC Ur Glucose (UA) Negative POC Urine Ketones Negative POC Urine Blood Negative POC Urine Nitrite Negative POC Urine Bilirubin Negative POC Urine Urobilinogen 0.2 POC U Leukocyte Esteras Negative Influenza A (Rapid) Negative Influenza B (Rapid) Negative Group A Strep Rapid Negative Vital Signs Reviewed: Yes Eyes: Positive: Conjunctiva Clear ENT: Positive: Hearing grossly normal, Pharynx normal, TMs normal Neck: Positive: Supple, Nontender, No Lymphadenopathy Respiratory Exam: Normal Cardiovascular Exam: Normal Abdomen Description: Positive: Soft. Negative: CVA Tenderness (R), CVA Tenderness (L) Musculoskeletal: Positive: No Edema Neurological: Positive: Alert Psychological: Positive: Age Appropriate Behavior Skin: Negative: Rashes Flu Course/Dx - Course Course Of Treatment: FLU NEGATIVE. STREP NEGATIVE. PATIENT LIKELY HAS VIRALLY MEDIATED SYMPTOMS SHOULD RESOLVE ON THEIR WITH TIME. REST, HYDRATE, OTC MEDS NEEDED. FOLLOW- UP IF NOT IMPROVING EXPECTED. URINE DIP UNREMARKABLE OTHER THAN SHOWING CONCENTRATED URINE. PATIENT'S SYMPTOMS ARE LIKELY DUE TO OVERLY CONCENTRATED URINE DUE TO BEING IN A RELATIVE STATE OF DEHYDRATION. ENCOURAGED TO DRINK AT LEAST 2 L OF FREE WATER DAILY AND IF SYMPTOMS PERSIST TO SEEK REEVALUATION. - Differential Dx/Diagnosis Provider Diagnosis: Flu-like symptoms, Dysuria Discharge ED - Sign-Out/Discharge Documenting (check all that apply): Patient Departure All imaging exams completed and their final reports reviewed: No Studies - Discharge Plan Condition: Stable Disposition: HOME Patient Education Materials: Viral Syndrome (ED), Dysuria (ED) Forms: *Work Release Referrals: [facility] [Outside] - If Needed Additional Instructions: FLU NEGATIVE. STREP NEGATIVE. YOUR SYMPTOMS ARE LIKELY VIRALLY MEDIATED AND SHOULD RESOLVE ON THEIR OWN WITH TIME. NO INDICATION FOR ANTIBIOTICS AT PRESENT. REST, HYDRATE, OTC MEDS NEEDED. SEEK FOLLOW-UP IF YOU ARE NOT IMPROVING OVER THE NEXT 1-2 WEEKS. YOUR URINE TEST TODAY SHOWS NO SIGN OF INFECTION HOWEVER IT IS VERY CONCENTRATED INDICATING YOU'RE NOT HYDRATING WELL ENOUGH. THIS CAN CAUSE YOUR URINE TO BURN WHEN IT COMES OUT. DRINK AT LEAST 2 L OF WATER DAILY. SEEK REEVALUATION IF YOUR SYMPTOMS PERSIST. CALL THE NUMBER BELOW FOR ASSISTANCE IN ESTABLISHING WITH A PCP An additional resource available to assist in finding the appropriate physician for your health care needs is the [facility] ([facility]). You may contact them by calling [phone]. - Billing Disposition and Condition Condition: STABLE Disposition: Home
== END 2019-09-04 11:02 | disposition home or self-care (01) ==
LOC: UCEAST 08:22
DX: R30.0 Dysuria (principal); J02.9 Acute pharyngitis, unspecified; R50.9 Fever, unspecified; R05 Cough; R53.83 Other fatigue; R51 Headache; M79.10 Myalgia, unspecified site
CPT/HCPCS: 81003; 87651; 99211; G0463